=== PATIENT | female | born 1945 ===

== ENCOUNTER 2017-05-24 21:37 | Observation (INO) | payer MEDICARE, BC ==
[~2017-05-24] VITALS: Ht 175.3 cm; Wt 64.5 kg
--- NOTE | ~2017-05-24 | DS ---
PATIENT'S NAME: ZULEYKA PEREZ [facility] AGE: 72 Y [address] ROOM: [id number] [place], [place] [address] LOCATION: [facility] [place] ADMIT DATE: 05/25/2017 Discharge Summary DISCHARGE DATE: 05/26/2017 FAMILY PHYSICIAN: Bc Woods MD ATTENDING PHYSICIAN: Gonzalez Laguna FINAL DIAGNOSES: 1. Acute abdominal pain. 2. Chronic constipation. 3. Parkinson disease. 4. Accelerated hypertension. 5. Encephalopathy, secondary to hypertension. 6. Elevated lipase. HOSPITAL COURSE: Please see details of admission and H and P by Dr. Laguna. Briefly, the patient was admitted with severe abdominal pain. CT scan showing moderate volume of fecal matter in the colon. The patient was admitted for observation, further evaluation, and treatment. The patient was monitored on telemetry, secondary to her history of arrhythmia. She was noted to be mildly confused and CT scan was done showing no acute abnormality. The patient was placed on p.o. Reglan for nausea, Protonix for GI prophylaxis, and labetalol for acute hypertension. The patient was started on p.o. amlodipine as well as NOLAN inhibitor. Her home medications were continued. We utilized Lovenox for DVT prophylaxis. The patient was given Zofran for nausea. The patient did feel a little bit better. She had not had a bowel movement later on her hospital day. She was given Mag citrate and Dulcolax suppository. The patient did have some elevation in her lipase levels. But upon recheck, it did return back down to near normal level. On the , the patient had several loose stools and was feeling much better, abdominal pain had subsided, and she felt like she could safely discharge home. The patient's blood pressure had returned to a normal level, and her encephalopathy had cleared. The patient is able to verbalize understanding of these discharge instructions and was discharged in stable condition. DIAGNOSTICS: CT of the abdomen and pelvis showed no acute findings of pancreatitis, moderate volume of fecal material in the colon. 7 mm nodule at the left lung base is stable in appearance since prior imaging. CT of the head without contrast shows evidence of small meningioma in the left frontal area. No skull fracture. No acute hemorrhage or midline shift. On admission, amylase was 45, lipase was 442, sodium 140, potassium 4.0, chloride 107, bicarb 23, glucose 119, BUN 24, creatinine 0.8. Total bilirubin, AST, ALT, and alkaline phosphatase were all within normal range. Mag was 2.0. Cardiac enzymes were within normal limits. CBC showed a white blood cell count 7.2, hemoglobin 15.8, hematocrit 47.4, platelets 141. Coags were within PATIENT'S NAME: ZULEYKA PEREZ [facility] AGE: 72 Y [address] ROOM: [address] [address] LOCATION: [facility] ADMIT DATE: 05/25/2017 Discharge Summary DISCHARGE DATE: 05/26/2017 FAMILY PHYSICIAN: Bc Woods MD ATTENDING PHYSICIAN: Gonzalez Laguna normal limits. Urinalysis was completely normal. Lipase was down to 212 on the 4th and down to 120 on the 5th. DISCHARGE INSTRUCTIONS: The patient is discharged home. Diet is as tolerated. Activity is as tolerated. Follow up with Dr. Woods in 1 week. DISCHARGE MEDICATIONS: 1. Sinemet 25/100 two tabs 4 times daily. 2. Lexapro 20 mg at bedtime. 3. Vitamin D3, 400 units daily. 4. Cranberry capsules 1 capsule daily. 5. Zofran 4 mg every 6 hours as needed. 6. Norvasc 10 mg daily at bedtime. 7. Colace 200 mg twice daily. 8. MiraLAX 17 g twice daily. 9. Tylenol 500 to 1000 mg every 6 hours as needed. We do appreciate participating in this patient's care, and thank you very much for the ability to serve her while hospitalized at [facility]. SERGEI KAHN FOR CARLOTA ARDON MD ROSALIE/modl /[id number] d: 05/27/17 0333 t: 06/03/17 1820, DISCHARGE SUMMARY
--- NOTE | ~2017-05-24 | HP ---
PATIENT'S NAME: ZULEYKA PEREZ [facility] AGE: 72 Y [address] ROOM: [address] [address] [place] [facility] [place]: 05/25/2017 History & Physical DISCHARGE DATE: FAMILY PHYSICIAN: Bc Woods MD ATTENDING PHYSICIAN: CAROLYN SAEED DATE OF SERVICE: CHIEF COMPLAINT: Constipation. HISTORY OF PRESENT ILLNESS: This is a 72-year-old female with past medical history remarkable for chronic constipation who says that last time she had a bowel movement was 7 days ago and that was when she took a laxative. She does not take laxative on a daily basis as she was told to do so and is just taking it on and off. She says that this morning when she went to her outpatient rehab for physical therapy, the patient fell, a little bit hot and sweaty lasted for roughly 10 minutes, but then went away. Then, she went home and then she felt this epigastric pain about 6/10 intensity, localized and she described the pain as bloating and is constant and associated with nausea. After that, her sensation of abdominal bloating persisted, that is why she came here for evaluation. She still passes flatus on a daily basis. She has had constipation for many years and she has been told in the past to take [id number] laxative on a daily basis until she has normal bowel movement, but she has not been doing that. No chest pain or dyspnea or vomiting. Patient's at bedside does say that for over a year patient has been confused on and off and worse recently and easily forgetful but no slurred speech, facial droop, or pronator drift. REVIEW OF SYSTEMS: As mentioned in the history of present illness. All other systems were reviewed and were negative except those mentioned in the history of present illness. PAST MEDICAL HISTORY: 1. Hypertension. 2. Constipation. 3. Parkinson disease. ALLERGIES: NONE. HOME MEDICATIONS: Currently has been reconciled. SOCIAL HISTORY: The patient was a former cigarette smoker. She quit about 40 years ago. She smoked about 1 pack per day for 6 years. She is a social alcohol drinker. PATIENT'S NAME: ZULEYKA PEREZ [facility] AGE: 72 Y [address] ROOM: [address] [address] [place] [facility] [place]: 05/25/2017 History & Physical DISCHARGE DATE: FAMILY PHYSICIAN: Bc Woods MD ATTENDING PHYSICIAN: CAROLYN SAEED Denies any alcohol abuse. She denies any illegal drug use. PAST SURGICAL HISTORY: 1. Status post right shoulder surgery in the past. 2. Status post bilateral knee surgery in the past. 3. Status post hysterectomy. 4. Status post cholecystectomy. FAMILY HISTORY: Father from cancer, but she could not remember which type of cancer. Mother is alive and has a colon cancer at old age but she does not remember at what age was diagnosed. PHYSICAL EXAMINATION: VITAL SIGNS: At the time of my dictation, blood pressure was 170/110, heart rate was 80, respiration was 14, saturation was 97% on room air and temperature was 98. GENERAL APPEARANCE: Alert and currently is oriented x3, in no acute distress. HEENT: Pupils equally round and reactive to light. Extraocular muscles intact. Anicteric sclerae. Nasal turbinates are normal bilaterally. Moist oral mucosa. NECK: No JVD. CARDIOVASCULAR: Regular rate and rhythm. Normal S1, S2. No murmur. No rubs. No gallops. RESPIRATORY: Clear to auscultation. No rales. No rhonchi. No wheezing. No crackles. ABDOMEN: Mild epigastric pain on palpation. No abdominal rigidity. Bowel sounds present. Soft. Nondistended. No mass. No ascites. EXTREMITIES: No edema in upper or lower extremities. NEUROLOGICAL: Grossly nonfocal. Because of Parkinson disease, the patient sometimes very slow in answering questions and the patient's states that this is chronic and has been going on for many years. SKIN: No ulcer. No rash. No cyanosis. LABORATORY DATA: Troponin less than 0.04. CPK 58, white blood cells 7.2, hemoglobin 15.8, hematocrit 47.4, platelet 141, glucose 119, BUN 24, creatinine 0.8. Sodium 138, potassium 4.0, chloride 107, CO2 23, calcium 8.3, total protein 6.9, albumin 3.5, AST 20, ALT 30, alkaline phosphatase 96, total bilirubin 1.0, magnesium 2.0, anion gap 12, GFR more than 60. Globulin 3.4, INR 1.01, PTT 28, amylase 45, lipase 442, CK-MB 0.7. IMAGING STUDIES: EKG on admission on 05/24/2017 at 10:07 p.m. shows sinus rhythm, heart rate of 92, QRS of 88 milliseconds, OK of 167 milliseconds, QTc 384 milliseconds leads PATIENT'S NAME: ZULEYKA PEREZ [facility] AGE: 72 Y [address] ROOM: [place] [address] [place] [facility] [place]: 05/25/2017 History & Physical DISCHARGE DATE: FAMILY PHYSICIAN: Bc Woods MD ATTENDING PHYSICIAN: CAROLYN SAEED in V2 consistent with left atrial hypertrophy findings. No ST elevation or depression. No prior EKG for comparison. CT scan of the abdomen and pelvis with IV contrast on admission, the preliminary report show probable constipation. No bowel obstruction. Prior cholecystectomy. No ascites. No pancreatitis. Normal pancreas. EMERGENCY ROOM COURSE: In the ER, the patient got 1 dose of IM Phenergan 25 mg x1. ASSESSMENT AND PLAN: 1. Regarding her epigastric pain and nausea secondary to constipation: I will give her p.o. MiraLax 1 packet twice a day and also Colace 200 mg twice a day, start right now and hold if has loose stools. If she does not have a bowel movement by tomorrow morning, can consider enema. For nausea, I will use reglan prn which also promotes gastric motility. Please follow up with the official report of the CT abdomen and pelvis in the morning. IV fluids for hydration. Can have cardiac diet and I will also give her p.o. Psyllium 3 times a day with meals to increase fiber intake for constipation. I will cycle cardiac enzymes one more set and repeat EKG if ever develops chest pain. Continue telemetry monitoring. For epigastric pain, I will give her po protonix for possible GERD. The pain is palpable in epigastric so less likely is cardiac origin. 2. Regarding her hypertensive emergency with hypertensive encephalopathy: Start her on p.o. amlodipine 10 mg once a day and also po captopril 25mg tid start right now and also IV labetalol p.r.n. and also IV hydralazine p.r.n. 3. Regarding her Parkinson disease: Continue home medication which will be reconciled once home med list is ready. The patient is at high fall risk due to her Parkinson with shuffling gait. PT, OT. Fall precaution. 4. Regarding her hypertensive encephalopathy: At home she is not on any home meds for hypertension. I will get a CT of the head without contrast for evaluation. Could consider MRI of the brain if necessary. I will also check a UA to rule out UTI. Hypertension control as mentioned in #2. 5. Lipase elevation: Lipase is slightly elevated at 442, this does not meet the criteria for pancreatitis. Pancreatitis is defined as more than 3 times upper normal limit to consider pancreatitis. In addition, CT of the abdomen and pelvis on preliminary report did not show any inflamed pancreas. I will keep cycling one more set in the morning. IV fluids for hydration. 6. Regarding her deep vein thrombosis prophylaxis. The patient will be PATIENT'S NAME: ZULEYKA PEREZ [facility] AGE: 72 Y [address] ROOM: [place] [address] [place] [facility] [place]: 05/25/2017 History & Physical DISCHARGE DATE: FAMILY PHYSICIAN: Bc Woods MD ATTENDING PHYSICIAN: CAROLYN SAEED getting [facility] subcu. 7. She is a full code. Time spent in care on the day of admission 35 minutes where 15 minutes was spent on chart review. The remainder of time was spent on interview and physical examination and the plan of care by addressing all the questions and concerns that the patient and the patient's had at the bedside. I answered all their questions to their satisfaction. Further plan will depend on clinical course. CAROLYN SAEED MD CC/modl /[id number] D: T: 731 HISTORY & PHYSICAL
--- NOTE | ~2017-05-24 | ER ---
PAT[facility]: [facility] AGE: 72 Y [address] ROOM: [place] [address] [place] [facility] [place]: 05/25/[place] ER/Outpatient Report DISCHARGE DATE: FAMILY PHYSICIAN: Bc Woods MD ATTENDING PHYSICIAN: CAROLYN SAEED Time of Arrival: 2137 hours. Time of Evaluation: 2150 hours. IDENTIFICATION: A 72-year-old female. CHIEF COMPLAINT: Upper abdominal pain. HISTORY OF PRESENT ILLNESS: The patient has a "fullness that will not go away." Positive nausea, no vomiting. She was diaphoretic at PT today, lasted about 10 minutes. No chest pain. Last bowel movement was 1 to 2 days ago. She does have a long-standing history of constipation. She said this feels different than when she had been constipated. PAST MEDICAL HISTORY: ALLERGIES: NO KNOWN DRUG ALLERGIES. CURRENT MEDICATIONS: 1. Sinemet. 2. Vitamin D. 3. Cranberry. 4. Lexapro. MEDICAL PROBLEMS: Hypertension, Parkinson, and constipation. PRIOR SURGERIES: Bilateral knee replacement, cholecystectomy, appendectomy, cataract surgery, hysterectomy, and elbow surgery. SOCIAL HISTORY: The patient is , lives here in [place]. She is retired. Tobacco use, quit 40 years ago. Alcohol use, occasional. Drug use, denies. REVIEW OF SYSTEMS: PATIENT'S NAME: ANA ZULEYKA Erum [facility] AGE: 72 Y [address] ROOM: [place] [address] [place] [facility] [place]: 05/25/2017 ER/Outpatient Report DISCHARGE DATE: FAMILY PHYSICIAN: Bc Woods MD ATTENDING PHYSICIAN: CAROLYN SAEED All systems reviewed and negative other than what is noted in the HPI. FAMILY HISTORY: Sister had sudden cardiac in her 70s. PHYSICAL EXAMINATION: VITAL SIGNS: Height 5 feet 9 inches, weight 64.5 kg. Blood pressure 154/83, pulse 90, respirations 16, temperature 98.5, and saturations 91%. GENERAL: A 72-year-old female, in mild distress. HEENT: Head: Normocephalic, atraumatic. Eyes: Pupils equal and reactive to light and accommodation. Extraocular movements intact. Nose: Mucosa pink. No lesions. Mouth: No lesions. Pharynx benign. NECK: Supple. No lymphadenopathy. LUNGS: Clear to auscultation. HEART: Regular rate and rhythm. ABDOMEN: Soft, nondistended. Minimally tender in her epigastric region. No rebound or guarding. SKIN: [place], warm, and dry. No lesions or rashes noted. NEURO: No focal deficit. EMERGENCY DEPARTMENT COURSE: The patient took Zofran at 6:00 p.m. and again at 9:00 p.m. with no relief, she continues to be nauseous. She did request something for nausea. She was given Phenergan 25 mg IM, which did give her some relief. Three-way abdomen, constipation, no obstruction. EKG: Normal sinus rhythm at 92 beats per minute. No acute ST elevation or depression. Hemoglobin 15.8; hematocrit 47.4; platelets 141; white count 7.2, 83% segs, 5% bands. INR 1.010. Chemistry panel is unremarkable. Cardiac enzymes negative x1. Amylase 45, lipase 442. CT scan with IV contrast of her abdomen: Probable constipation. No bowel obstruction. Normal pancreas. Prior cholecystectomy with stable biliary prominence. IMPRESSION: 1. Epigastric abdominal pain and nausea. 2. Pancreatitis with elevated lipase. 3. Severe constipation. 4. Parkinson's. PLAN: Discussed with the patient and hospitalist. The patient will be admitted for IV fluids and p.o. pain control and followup. PATIENT'S NAME: ZULEYKA PEREZ [facility] AGE: 72 Y [address] ROOM: [place] [address] [place] [facility] [place]: 05/25/2017 ER/Outpatient Report DISCHARGE DATE: FAMILY PHYSICIAN: Bc Woods MD ATTENDING PHYSICIAN: CAROLYN SAEED MD CAR/modl /[id number] d: 05/25/17 0411 t: 07/06/17 0658, OUTPATIENT REPORT
[2017-05-24 22:16] LABS: HEMATOCRIT 47.4 % (33.0-46.0); HEMOGLOBIN 15.8 g/dL (10.0-15.0); MCH 29.6 pg (27.0-34.0); MCHC 33.3 gm/dL (32.0-36.5); MCV 88.8 fl (83.0-98.0); MPV 10.8 fl (9.4-12.4); PLATELET COUNT 141 K/uL (150-450); RBC 5.34 M/uL (3.50-5.50); RDW-CV 13.2 % (11.9-14.6); WBC 7.2 K/uL (4.0-11.0)
[2017-05-24 22:25] LABS: INR - (THERAPEUTIC) 1.01 (0.92-1.07); PROTIME 10.6 SECONDS (9.8-11.4); PTT 28 SECONDS (25-32)
[2017-05-24 22:35] LABS: ALBUMIN 3.5 gm/dL (3.5-5.0); ALK PHOS 96 IU/L (33-138); ALT 30 IU/L (12-78); AST 28 IU/L (10-40); BLOOD UREA NITROGEN 24 mg/dL (6-24); CALCIUM 8.3 mg/dL (8.5-10.5); CHLORIDE 107 mMol/L (96-110); CO2 23 mMol/L (22-32); CPK 58 IU/L (21-215); CREATININE 0.8 mg/dL (0.5-1.1); ESTIMATED GFR (MDRD EQUATION) > 60; SODIUM 138 mMol/L (135-145); TOTAL PROTEIN 6.9 g/dL (6.0-8.4)
[2017-05-24 22:39] LABS: ABSOLUTE NEUTROPHIL CT (ANC) 6.3 K/uL (1.8-7.8); BANDED NEUTROPHIL # 0.4 K/uL (0.0-0.1); BANDED NEUTROPHILS % 5 %; LYMPHOCYTE # 0.5 K/uL (0.8-4.0); LYMPHOCYTE % 7 %; MONOCYTE # 0.4 K/uL (0.0-1.0); SEGMENTED NEUTROPHIL % 83 %
[2017-05-25] MEDS ORDERED: SINEMET 25/1001 TAB PO (00:54)
[2017-05-25] MEDS ORDERED: LEXAPRO20 MG PO (00:55)
[2017-05-25] MEDS ORDERED: VITAMIN D-40400 UNIT PO (00:56)
[2017-05-25] MEDS ORDERED: CRANBERRY500 M1 PO (00:58)
[2017-05-25 03:24] LABS: BILIRUBIN URINE NEGATIVE (NEGATIVE); BLOOD URINE NEGATIVE /UL (NEGATIVE); COLOR URINE YELLOW (YELLOW); GLUCOSE URINE NEGATIVE (NEGATIVE); KETONE URINE NEGATIVE (NEGATIVE); LEUKOCYTES URINE NEGATIVE /UL (NEGATIVE); NITRITE URINE NEGATIVE (NEGATIVE); PROTEIN URINE NEGATIVE (NEGATIVE); TURBIDITY URINE CLEAR (CLEAR); UROBILINOGEN URINE NORMAL (NORMAL)
[2017-05-25 04:24] LABS: HEMATOCRIT 45.8 % (33.0-46.0); HEMOGLOBIN 15.1 g/dL (10.0-15.0); MCH 29.3 pg (27.0-34.0); MCV 88.8 fl (83.0-98.0); MPV 10.7 fl (9.4-12.4); RBC 5.16 M/uL (3.50-5.50); RDW-CV 13.3 % (11.9-14.6); WBC 5.9 K/uL (4.0-11.0)
[2017-05-25 04:43] LABS: BLOOD UREA NITROGEN 20 mg/dL (6-24); CALCIUM 8.5 mg/dL (8.5-10.5); CHLORIDE 106 mMol/L (96-110); CO2 27 mMol/L (22-32); CPK 138 IU/L (21-215); CREATININE 0.8 mg/dL (0.5-1.1); ESTIMATED GFR (MDRD EQUATION) > 60; SODIUM 139 mMol/L (135-145)
--- NOTE | 2017-05-25 05:19 | NUR ---
Significant Event: Patient is a 72 year old female with a 24 hour history of nausea, increasing weakness and fatigue. Her medical history is significant for Parkinson's disease (diagnosed at age 16), hypertension, and constipation. Patient was seen in the clinic yesterday and was given Zofran and sent home. Patient contiued to have nausea despite medication so was brought the ER for furhter evaluation. Labs and cardiac work-up in ER were unremarkable. CT of abdomen revealed constipation. Patient reports last BM was a week ago. Since arrival to the floor patient has been afebrile, all other VSS. Colace, Miralax, Protonix and Norvasc initial dosed. Patient has not complained of nausea since admission to the floor and patient is taking sips of PO fluids without nausea or vomiting. Patient has a slightly unsteady gait but ambulates with 1 assist and gait belt. Patient was forgetful at times during the admission process but dd re-orient easily and answered questions appropriately. Bowel sound hyperactive x4 quadrants. Patient states that she is passing flatus. New PIV started to L) posterior FA and is infusing without complications. went home for the evening, will return this morning. CT scan of head ordered for this am r/t patients forgetfulness/confusion. Pleasant and cooperative with cares. Follow up:
--- NOTE | 2017-05-25 15:24 | NUR ---
D: Patient vital sign stable patient afebrile. Patient hypertension much improved today. Patient has been sleepy but did not get much sleep last night. Tylenol given x 1 for headache approx 1430, one bottle of mag citrate given at 1445, dulcolax given approx 1430 with beginning of results. Patient did have CT of head, no results reported at this time. Patient did have one bout of emesis, zofran given at 0850 with relief.
--- NOTE | 2017-05-26 00:56 | NUR ---
SIGNIFICANT EVENT: Alert & oriented. VSS on RA. SBA for transfers/ambulation - slight imbalanced gait d/t hx parkinsons. HS dulcolax and miralax held d/t diarrhea x5 so far this shift. BS remain hyperactive. PIV to L) FA infusing NS at 75. No PRN meds given. Pleasant and cooperative with cares.
[2017-05-26 06:05] LABS: ALBUMIN 2.9 gm/dL (3.5-5.0); ANION GAP 9.8 (10.0-19.0); BLOOD UREA NITROGEN 18 mg/dL (6-24); CALCIUM 8.3 mg/dL (8.5-10.5); CHLORIDE 109 mMol/L (96-110); CO2 28 mMol/L (22-32); CREATININE 0.8 mg/dL (0.5-1.1); ESTIMATED GFR (MDRD EQUATION) > 60; PHOSPHORUS 2.8 mg/dL (2.5-4.9); POTASSIUM 3.8 mMol/L (3.7-5.1); SODIUM 143 mMol/L (135-145)
[2017-05-26] MEDS ORDERED: ZOFRAN4 MG PO (08:05)
--- NOTE | 2017-05-26 10:25 | NUR ---
Introduced self/role to patient. She lives in [place] with her Skyler. They built a handicap assessable home and she has some DME already. Denied any barriers to going home or at home. Added my name to her marker board if something changed.
[2017-05-26] MEDS ORDERED: NORVASC10 MG PO (14:52)
[2017-05-26] MEDS ORDERED: COLACE100 MG PO (14:53)
[2017-05-26] MEDS ORDERED: MIRALAX17 GM PO (14:54)
[2017-05-26] MEDS ORDERED: TYLENOL EXTRA500 MG PO (14:57)
--- NOTE | 2017-05-26 15:40 | NUR ---
Significant Event: PT WAS DISMISSED TO HOME WITH HER . PT DID NOT HAVE CONFUSION TODAY, ALERT AND ORIENTED. PT WAS UP INDEPENDENTLY IN HER ROOM. EATING AND DRINKING WELL. PT HAD 2 SMALL LOOSE STOOLS. DENIES ANY ABDOMINAL PAIN.
== END 2017-05-26 15:40 | disposition disaster alternative care site (69) ==
LOC: GMED 21:37 → GMSU 05-25
PROVIDERS: Family Medicine; Internal Medicine; ADMIT Internal Medicine
DX: R10.13 Epigastric pain (principal); K59.09 Other constipation; G20 Parkinson's disease; I67.4 Hypertensive encephalopathy; I10 Essential (primary) hypertension; R74.8 Abnormal levels of other serum enzymes; Z87.891 Personal history of nicotine dependence; Z90.49 Acquired absence of other specified parts of digestive tract; Z90.710 Acquired absence of both cervix and uterus; Z96.653 Presence of artificial knee joint, bilateral; Z98.49 Cataract extraction status, unspecified eye; Z98.890 Other specified postprocedural states
CPT/HCPCS: G0378; G8978; G8979; G8980; G8987; G8988; G8989; J1650; J2405; J2550; J7030; Q9967